=== PATIENT | male | born 2000 | race Hispanic/Latino ===

== ENCOUNTER 2019-01-18 21:24 | Emergency (ER) | payer SELFPAY ==
--- NOTE | 2019-01-18 22:03 | RAD ---
RIGHT KNEE FOUR VIEWS: 01/18/19 HISTORY: Right knee pain. Injury playing basketball. FINDINGS/IMPRESSION: No acute fracture or dislocation is seen. If there is concern for meniscal or ligamentous injury, further evaluation with MRI should be perform ed. POS: [facility]
== END 2019-01-18 22:56 | disposition home or self-care (01) ==
LOC: ERS 21:24
DX: S83.91XA Sprain of unspecified site of right knee, initial encounter (principal); X50.1XXA Overexertion from prolonged static or awkward postures, initial encounter